=== PATIENT | male | born 2000 ===

== ENCOUNTER → 2022-01-12 10:04 | Outpatient (CLI) | payer OTHER, SELFPAY ==
--- NOTE | 2022-01-12 | DI.MRI.S_ITS ---
PROCEDURE: MR SHOULDER RT W CON INDICATIONS: RIGHT SHOULDER INSTABILITY TECHNIQUE: After the administration of 12 mL of dilute intra-articular Gadolinium contrast, oblique coronal T1 and T2 spin echo with fat saturation, oblique sagittal T1 spin echo with and without fat saturation, oblique sagittal T2 fast spin echo with fat saturation, axial T1 spin echo with fat saturation through the shoulder. COMPARISON: None. FINDINGS: Image quality: Excellent. Rotator cuff: No atrophy of the rotator cuff musculature. Teres minor is intact. Infraspinatus tendinosis versus interstitial tear. No infiltrating contrast. No discrete supraspinatus tear. Some tendinosis is present. The subscapularis is intact. Bones and bursae: No acute fracture. Mild degenerative changes of the acromioclavicular joint. No full-thickness cartilage defect of the glenohumeral joint. Capsule and soft tissues: The inferior glenohumeral ligament is intact. There is normal fat signal in the rotator interval. No discrete tear of the superior labrum. The long head biceps tendon is intact. A small fluid cleft with contrast signal is seen in the anterior labrum, which appears bunched. This cleft has contrast signal (8/17, 7/17. Normal appearance of the middle glenohumeral ligament. IMPRESSION: Suspected anterior labral tear, with some remodelling and bunching of the anterior labrum. No full-thickness tear of the rotator cuff. Dictated by: Joe Brambila M.D. on 01/12/2022 at 16:31 Approved by: Joe Brambila M.D. on 01/12/2022 at 16:38
--- NOTE | 2022-01-12 | DI.RAD.S_ITS ---
PROCEDURE: FL SHOULDER INJECTION MR/CT RT INDICATIONS: RIGHT SHOULDER INSTABILITY COMPARISON: None. TECHNIQUE: The indications, alternatives, benefits, risks, and complications of the procedure were explained to the patient. Written informed consent was obtained and placed in the chart. The shoulder was examined fluoroscopically and a site for needle placement chosen for entry into the glenohumeral joint from an anterior approach. The skin was prepped and draped in a sterile fashion, and 1% lidocaine infiltrated from skin down to joint capsule. A spinal needle was inserted into the glenohumeral joint, and a small amount of iodinated contrast media injected to confirm intra-articular placement of the needle tip. This was followed by approximately 12 mL dilute solution of a gadolinium containing MR contrast agent. The needle was removed and a dressing was applied. The patient was given postprocedural instructions and sent to the MR suite for MR imaging. FINDINGS: A single fluoroscopic spot image demonstrates intra-articular location of injected iodinated contrast. IMPRESSION: Successful fluoroscopically guided administration of dilute Gadolinium solution into the shoulder joint for MR arthrogram. Dictated by: Wiliam To M.D. on 01/12/2022 at 16:38 Approved by: Wiliam To M.D. on 01/12/2022 at 16:38
== END ==
DX: M25.311 Other instability, right shoulder (principal)
CPT/HCPCS: 23350; 73222; 77002